=== PATIENT | male | born 1985 | race Hispanic/Latino ===

== ENCOUNTER 2020-08-10 14:25 | Emergency (ER) | payer SELFPAY ==
[2020-08-10] MEDS ORDERED: FAMOTIDINE 20MG TAB 20 MG TAB ONE (14:59)
[2020-08-10] MEDS ORDERED: PREDNISONE 20 MG TABLET ONE (14:59)
== END 2020-08-10 15:13 | disposition home or self-care (01) ==
LOC: EDH 14:25
DX: T78.3XXA Angioneurotic edema, initial encounter (principal); Z72.0 Tobacco use; W57.XXXA Bitten or stung by nonvenomous insect and other nonvenomous arthropods, initial encounter; Y93.89 Activity, other specified; Y92.89 Other specified places as the place of occurrence of the external cause; Y99.8 Other external cause status